=== PATIENT | female | born 1970 | race Caucasian/White ===

== ENCOUNTER → 2016-11-30 | Day surgery (SDC) | payer BC ==
[~2016-11-30] VITALS: Ht 170.1 cm; Wt 104.3 kg
[~2016-11-30] MED LIST: NORCO 5-325 TA1 EACH PO
--- NOTE | ~2016-11-30 | O ---
[place], [place] OPERATIVE NOTE NAME: KIMANI BELTRAN UNIT #: [id number] ROOM: DOCTOR: JUAN MANUEL ROSARIO MD BIRTHDATE: [birth year] DOS: 11/30/2016 PREOPERATIVE DIAGNOSIS: Scalp epidermal inclusion cyst. POSTOPERATIVE DIAGNOSIS: Scalp epidermal inclusion cyst. PROCEDURE: Excision of scalp epidermal inclusion cyst. SURGEON: Juan Manuel Rosario M.D. BOIL OFF MACHINE OPERATOR CLOTH: PGY1. ANESTHESIA: Local (6 mL of 1% lidocaine with epinephrine). INDICATIONS: This is a 46-year-old lady with a history of scalp epidermal inclusion cyst who is here for the above-mentioned procedure. The procedure and its complications were explained to the patient in detail and she agreed to proceed. DESCRIPTION OF PROCEDURE: After identifying the patient, the patient was brought to the operating room and laid in the supine position. After a time-out procedure was called, the parts were painted and draped in the usual sterile fashion. An incision was marked local anesthesia was infiltrated in the line of incision. The incision was made and deepened in layers. With the help of a knife the cyst was then excised in a piecemeal fashion in its entirety and sent for histopathological diagnosis. Thereafter, hemostasis was confirmed and the subcutaneous tissue was approximated with the help of 3-0 Vicryl and the skin was approximated with the help of 4-0 Vicryl in an interrupted fashion and dressing was placed. The patient tolerated the procedure well and was taken to the recovery room in stable fashion. There were no complications. Please make note that this cyst was present in the right parieto occipital area in the midline. There were no complications. Dr. Juan Manuel Rosario, the attending surgeon, was present throughout the operative case. [place], [place] OPERATIVE NOTE NAME: KIMANI BELTRAN UNIT #: [id number] ROOM: DOCTOR: JUAN MANUEL ROSARIO MD BIRTHDATE: [birth year] Juan Manuel Rosario MD CM:OPRECORD:OPERATIVE NOTE [id number] JUAN MANUEL ROSARIO MD 12/01/16 1434 interface
[2016-11-30 12:23] VITALS: BP 138/80
[2016-11-30 14:11] VITALS: BP 112/68
[2016-11-30 14:29] VITALS: BP 116/78
[2016-11-30 14:34] VITALS: BP 104/69
[2016-11-30 14:39] VITALS: BP 123/77
== END | disposition home or self-care (01) ==
LOC: SDC 11-29 08:45
DX: L57.0 Actinic keratosis (principal); F32.9 Major depressive disorder, single episode, unspecified; F17.210 Nicotine dependence, cigarettes, uncomplicated; Z88.2 Allergy status to sulfonamides

== ENCOUNTER → 2017-05-07 | Outpatient (CLI) | payer OTHER | LOC: US 12:00 | DX: N83.202 Unspecified ovarian cyst, left side (principal); N95.0 Postmenopausal bleeding; Z79.890 Hormone replacement therapy ==

== ENCOUNTER → 2018-02-12 | Outpatient (CLI) | payer OTHER | END | disposition home or self-care (01) | LOC: MAMMO 03:34 | DX: Z12.31 Encounter for screening mammogram for malignant neoplasm of breast (principal) ==

== ENCOUNTER → 2018-03-13 | Outpatient (CLI) | payer OTHER ==
[2018-03-13 06:33] LABS: BASO % 0.3 % (0.0-1.0); EOS # 0.3 10*3/uL (0.0-0.4); EOS % 3.6 % (1.0-4.0); HEMOGLOBIN 13.4 g/dl (12.0-16.0); LYMPH # 2.5 10*3/uL (1.3-4.4); MEAN CELL VOLUME 94.7 fl (81.0-99.0); MEAN CORPUSCULAR HGB 30.9 pg (27.0-31.0); MEAN CORPUSCULAR HGB CONC 32.7 g/dl (33.0-37.0); MEAN PLATELET VOLUME 11.1 fl (9.6-12.3); MONO # 0.6 10*3/uL (0.1-1.0); MONO % 8.1 % (3.0-9.0); NEUT # 4.1 10*3/uL (2.3-7.9); NEUT % 54.9 % (47.0-73.0); PLATELET COUNT AUTOMATED 206 10*3/uL (130-400); RED BLOOD COUNT 4.33 10*6/uL (4.10-5.10); RED CELL DISTRI WIDTH 12.6 % (0-14.5); WHITE BLOOD COUNT 7.4 10*3/uL (4.8-10.8)
[2018-03-13 07:08] LABS: ALBUMIN 3.5 gm/dl (3.1-4.5); CHLORIDE 109 mmol/L (98-107); POTASSIUM 4.4 mmol/L (3.5-5.1); SODIUM 143 mmol/L (136-145)
[2018-03-13 07:22] LABS: ALKALINE PHOSPHATASE 72 U/L (45-117); BUN 11 mg/dl (7-24); CHOLESTEROL 167 mg/dL (<200); CREATININE 0.92 mg/dL (0.55-1.02); HDL CHOLESTEROL 33 mg/dl (40-60); LDL CHOLESTEROL 84 mg/dL (9-159); SGOT/AST 10 IU/L (3-35); SGPT/ALT 16 U/L (12-78); TOTAL PROTEIN 6.9 gm/dL (6.4-8.2); TRIGLYCERIDES 248 mg/dl (<150); VLDL CHOLESTEROL 50 mg/dL (6-40)
[2018-03-13 20:21] LABS: PTH INTACT 85.6 pg/mL (18.5-88.0); VITAMIN D, 25-HYDROXY 23.5 ng/mL (30-100)
== END | disposition home or self-care (01) ==
LOC: LAB 05:21
PROVIDERS: Nurse Practitioner Family
DX: Z13.220 Encounter for screening for lipoid disorders (principal); Z13.9 Encounter for screening, unspecified; K92.2 Gastrointestinal hemorrhage, unspecified; N39.0 Urinary tract infection, site not specified; E55.9 Vitamin D deficiency, unspecified

== ENCOUNTER → 2018-06-13 | Outpatient (CLI) | payer OTHER ==
[2018-06-13 07:05] LABS: BASO % 0.3 % (0.0-1.0); EOS # 0.2 10*3/uL (0.0-0.4); EOS % 2.6 % (1.0-4.0); HEMATOCRIT 40.6 % (37.0-47.0); HEMOGLOBIN 13.3 g/dl (12.0-16.0); LYMPH # 2.2 10*3/uL (1.3-4.4); LYMPH % 30.4 % (27.0-41.0); MEAN CELL VOLUME 94.2 fl (81.0-99.0); MEAN CORPUSCULAR HGB 30.9 pg (27.0-31.0); MEAN CORPUSCULAR HGB CONC 32.8 g/dl (33.0-37.0); MEAN PLATELET VOLUME 10.4 fl (9.6-12.3); MONO # 0.7 10*3/uL (0.1-1.0); NEUT # 4.2 10*3/uL (2.3-7.9); NEUT % 57.4 % (47.0-73.0); PLATELET COUNT AUTOMATED 207 10*3/uL (130-400); RED BLOOD COUNT 4.31 10*6/uL (4.10-5.10); RED CELL DISTRI WIDTH 12.8 % (0-14.5); WHITE BLOOD COUNT 7.2 10*3/uL (4.8-10.8)
[2018-06-13 07:36] LABS: ALBUMIN 3.4 gm/dl (3.1-4.5); ALKALINE PHOSPHATASE 79 U/L (45-117); BUN 13 mg/dl (7-24); CHLORIDE 107 mmol/L (98-107); CHOLESTEROL 181 mg/dL (<200); CREATININE 0.84 mg/dL (0.55-1.02); HDL CHOLESTEROL 42 mg/dl (40-60); LDL CHOLESTEROL 117 mg/dL (9-159); POTASSIUM 3.9 mmol/L (3.5-5.1); SGOT/AST 14 IU/L (3-35); SGPT/ALT 17 U/L (12-78); SODIUM 143 mmol/L (136-145); TOTAL PROTEIN 7.2 gm/dL (6.4-8.2); TRIGLYCERIDES 112 mg/dl (<150); VLDL CHOLESTEROL 22 mg/dL (6-40)
== END | disposition home or self-care (01) ==
LOC: LAB 06:31
PROVIDERS: Nurse Practitioner Family
DX: E55.9 Vitamin D deficiency, unspecified (principal); E78.1 Pure hyperglyceridemia; K92.1 Melena

== ENCOUNTER → 2018-12-12 | Outpatient (CLI) | payer OTHER ==
[2018-12-12 07:18] LABS: BASO % 0.4 % (0.0-1.0); EOS # 0.3 10*3/uL (0.0-0.4); EOS % 3.4 % (1.0-4.0); HEMATOCRIT 39.3 % (37.0-47.0); HEMOGLOBIN 12.9 g/dl (12.0-16.0); LYMPH # 2.2 10*3/uL (1.3-4.4); LYMPH % 29.8 % (27.0-41.0); MEAN CELL VOLUME 95.2 fl (81.0-99.0); MEAN CORPUSCULAR HGB 31.2 pg (27.0-31.0); MEAN CORPUSCULAR HGB CONC 32.8 g/dl (33.0-37.0); MEAN PLATELET VOLUME 10.8 fl (9.6-12.3); MONO # 0.6 10*3/uL (0.1-1.0); MONO % 8.4 % (3.0-9.0); NEUT # 4.2 10*3/uL (2.3-7.9); NEUT % 57.6 % (47.0-73.0); PLATELET COUNT AUTOMATED 208 10*3/uL (130-400); RED BLOOD COUNT 4.13 10*6/uL (4.10-5.10); RED CELL DISTRI WIDTH 13.2 % (0-14.5); WHITE BLOOD COUNT 7.3 10*3/uL (4.8-10.8)
[2018-12-12 07:43] LABS: ALBUMIN 3.4 gm/dl (3.1-4.5); ALKALINE PHOSPHATASE 77 U/L (45-117); BUN 10 mg/dl (7-24); CHLORIDE 111 mmol/L (98-107); CHOLESTEROL 162 mg/dL (<200); CREATININE 0.91 mg/dL (0.55-1.02); HDL CHOLESTEROL 46 mg/dl (40-60); LDL CHOLESTEROL 90 mg/dL (9-159); POTASSIUM 4.2 mmol/L (3.5-5.1); SGOT/AST 11 IU/L (3-35); SGPT/ALT 15 U/L (12-78); SODIUM 141 mmol/L (136-145); TOTAL PROTEIN 6.9 gm/dL (6.4-8.2); TRIGLYCERIDES 131 mg/dl (<150); VLDL CHOLESTEROL 26 mg/dL (6-40)
== END | disposition home or self-care (01) ==
LOC: LAB 06:14
PROVIDERS: Nurse Practitioner Family
DX: E55.9 Vitamin D deficiency, unspecified (principal)